=== PATIENT | male | born 1985 ===

== ENCOUNTER 2018-03-04 12:46 | Inpatient (IN) | payer SELFPAY ==
[2018-03-04] MEDS ORDERED: Sodium Chloride 0.9% 1,000 ML IV STA (13:08)
--- NOTE | 2018-03-04 13:23 | ED PDOC ---
HPI: Abdomen Time Seen by Provider: 03/04/18 12:55 Chief Complaint (Nursing): Abdominal Pain Chief Complaint (Provider): Abd pain History Per: Patient History/Exam Limitations: no limitations Onset/Duration Of Symptoms: Days (several days) Outside of [place] travel?: No Additional Complaint(s): Pt. with abd pain RUQ constant. No weakness, diarrhea, new food, back pain, fever, cough. Nausea, and 1 nonbloody vomit. No chest pain, dyspnea. No drugs or etoh. Past Medical History Reviewed: Nursing Documentation, Vital Signs Vital Signs: Last Vital Signs Temp 97.6 F 03/04/18 12:49 Pulse 69 03/04/18 12:49 Resp 18 03/04/18 12:49 BP Pulse Ox 99 03/04/18 13:48 - Medical History PMH: Kidney Stones - Surgical History Other surgeries: kidney stone surgery - Family History Family History: States: Unknown Family Hx - Home Medications Home Medications: Ambulatory Orders Medication Instructions Recorded No Known Home Med 03/04/18 - Allergies Allergies/Adverse Reactions: Allergies Allergy/AdvReac Type Severity Reaction Status Date / Time No Known Allergies Allergy Verified 03/04/18 12:49 Review of Systems ROS Statement: Except As Marked, All Systems Reviewed And Found Negative Gastrointestinal: Positive for: Nausea, Abdominal Pain Physical Exam - Reviewed Nursing Documentation Reviewed: Yes Vital Signs Reviewed: Yes - Physical Exam Appears: Positive for: Non-toxic, No Acute Distress Head Exam: Positive for: ATRAUMATIC, NORMAL INSPECTION, NORMOCEPHALIC Skin: Positive for: Normal Color, Warm, DRY Eye Exam: Positive for: EOMI, Normal appearance, PERRL ENT: Positive for: Normal ENT Inspection Neck: Positive for: Normal, Painless ROM Cardiovascular/Chest: Positive for: Regular Rate, Rhythm Respiratory: Positive for: CNT, Normal Breath Sounds Gastrointestinal/Abdominal: Positive for: Soft, Tenderness (RUQ), Guarding. Negative for: Distended Back: Positive for: Normal Inspection. Negative for: L CVA Tenderness, R CVA Tenderness Extremity: Positive for: Normal ROM. Negative for: Tenderness Neurologic/Psych: Positive for: Alert, Oriented - Laboratory Results Result Diagrams: 03/04/18 13:57 03/04/18 13:57 Interpretation Of Abn Labs: t bili and ast/alt elevation - ECG O2 Sat by Pulse Oximetry: 99 Pulse Ox Interpretation: Normal - Progress ED Course And Treament: 1432: Stable. GB stones, likely cholecystitis. Spoke with surgery who will see pt. in the ER and admit to their service. Disposition - Clinical Impression Clinical Impression: Cholecystitis - Patient ED Disposition Is Patient to be Admitted: Yes Counseled Patient/Family Regarding: Studies Performed, Diagnosis - Disposition Disposition Time: 14:33 Condition: FAIR - Pt Status Changed To: Hospital Disposition Of: Inpatient - Admit Certification Admit to Inpatient:: After my assessment, the patient will require hospitalization for at least two midnights. This is because of the severity of symptoms shown, intensity of services needed, and/or the medical risk in this patient being treated as an outpatient. - POA Present On Arrival: None
[2018-03-04 14:10] LABS: BASO % 0.3 % (0.0-2.0); EOS # 0.1 K/uL (0.0-0.7); EOS % 0.8 % (0.0-4.0); HEMOGLOBIN 14.1 g/dL (12.0-18.0); LYMPH # 1.7 K/uL (1.0-4.3); LYMPH % 19.3 % (20.0-40.0); MEAN CELL VOLUME 92.9 fl (80.0-94.0); MEAN CORPUSCULAR HEMOGLOBIN 31.5 pg (27.0-31.0); MEAN CORPUSCULAR HGB CONC 33.9 g/dL (33.0-37.0); MEAN PLATELET VOLUME 7.5 fl (7.2-11.7); MONO # 0.4 K/uL (0.0-0.8); MONO % 4.8 % (0.0-10.0); NEUT # 6.7 K/uL (1.8-7.0); NEUT % 74.8 % (50.0-75.0); RBC 4.48 Mil/uL (4.40-5.90); RED CELL DISTRIBUTION WIDTH 13.6 % (11.5-14.5); WHITE BLOOD COUNT 8.9 K/uL (4.8-10.8)
[2018-03-04 14:21] LABS: ALB/GLOB RATIO 1.3 (1.0-2.1); ALBUMIN 4.1 g/dL (3.5-5.0); ALT/SGPT 460 U/L (21-72); AST/SGOT 247 U/L (17-59); BLOOD UREA NITROGEN 17 mg/dl (9-20); GFR NON-AFRICAN AMERICAN > 60; LIPASE 76 U/L (23-300)
[2018-03-04] MEDS ORDERED: Piperacillin/Tazobact 3.375 GM in Sodium Chloride 0.9% 100 ML IV STA (14:31)
--- NOTE | 2018-03-04 14:31 | US ---
Date of service: 03/04/2018 HISTORY: abd pain RUQ COMPARISON: None. TECHNIQUE: Sonographic evaluation of the right upper quadrant of the abdomen. FINDINGS: LIVER: Measures 20.5 cm in length. Increased echogenicity of the liver parenchyma. No mass. No intrahepatic bile duct dilatation. GALLBLADDER: Cholelithiasis without gallbladder wall thickening or pericholecystic fluid. Sonographic Houser's sign was not elicited COMMON BILE DUCT: Measures 5 mm. No stones. No dilatation. PANCREAS: Unremarkable as visualized. No mass. No ductal dilatation. RIGHT KIDNEY: Measures 12.4 x 6.4 x 5.2 cm in length. Normal echogenicity. No calculus, mass, or hydronephrosis. AORTA: No aneurysmal dilatation. IVC: Unremarkable. OTHER FINDINGS: None . IMPRESSION: Hepatomegaly with steatosis. Cholelithiasis without sonographic evidence of acute cholecystitis.
[2018-03-04] MEDS ORDERED: Piperacillin/Tazobact 3.375 gm Inj IVPB ONE ×2 (14:45→23:59)
--- NOTE | 2018-03-04 16:37 | CP.PCM.HP ---
<Sharona Benz - Last Filed: 03/05/18 00:17> History of Present Illness - History of Present Illness History of Present Illness: General surgery H & P for Dr. Dede Benz, PGY-2 Pt S & E at beside at 1615 32M w/PMH sig for nephrolithiasis admitted for epigastric and RUQ ab pain x 4 days. Pt reports onset of pain on Saturday [employer] after eating tacos, pain subsided Saturday and Saturday, then recurred this AM after dinner of subway sandwich with coleman the evening prior. Pain is epigastric, radiates to RUQ and back. Pain is severe and intermittent. Pt tried Tylenol w/o relief. No other aggravating factors identified. Admits to dysuria, chills, dizziness, PINZON, flank pain, generalized weakness, cough, congestion, "feels cold", and fatigue. Denies constipation (last BM on day of evaluation), hematuria, hematochezia, chest pain, SOB, diarrhea, nausea, emesis, fevers, other complaints. In Ed, afebrile, no leukocytosis. T bili 1.4, LFTs elevated. Ab U/S w/ cholelithiasis. Lipase WNL. 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 absent: Fever - EENT Eyes: Change in Vision Ears: Dizziness Nose/Mouth/Throat: Nasal Congestion, Sore Throat - Cardiovascular Cardiovascular: absent: Chest Pain - Respiratory Respiratory: Cough - Gastrointestinal Gastrointestinal: Abdominal Pain. absent: Change in Bowel Habits, Constipation , Diarrhea, Hematemesis, Hematochezia, Nausea, Vomiting - Genitourinary Genitourinary: Dysuria, Flank Pain. absent: Change in Urinary Stream, Difficulty Urinating, Hematuria, Pyuria, Urinary Frequency, Urinary Urgency - Musculoskeletal Musculoskeletal: Back Pain. absent: Numbness, Tingling - Integumentary Integumentary: absent: Rash - Neurological Neurological: Dizziness, Weakness - Psychiatric Psychiatric: Change in Appetite (decreased) - Endocrine Endocrine: Fatigue Past Patient History - Past Social History Smoking Status: Current Some Days Smoker - RENAL Hx Kidney Stones: Yes - GENITOURINARY/GYNECOLOGICAL Hx Genitourinary Disorders: Yes Other/Comment: KIDNEY STONES - PSYCHIATRIC Hx Substance Use: Yes - SURGICAL HISTORY Hx Surgeries: Yes Other/Comment: KIDNEY STONES SURGERY - ANESTHESIA Hx Anesthesia: Yes Hx Anesthesia Reactions: No Meds Allergies/Adverse Reactions: Allergies Allergy/AdvReac Type Severity Reaction Status Date / Time No Known Allergies Allergy Verified 03/04/18 12:49 Physical Exam - Constitutional Appears: Non-toxic, No Acute Distress - Head Exam Head Exam: ATRAUMATIC, NORMAL INSPECTION, NORMOCEPHALIC - Eye Exam Eye Exam: EOMI, Normal appearance - ENT Exam ENT Exam: Mucous Membranes Moist, Normal Exam - Neck Exam Neck exam: Positive for: Full Rom, Normal Inspection - Respiratory Exam Respiratory Exam: Clear to Auscultation Bilateral, NORMAL BREATHING PATTERN. absent: Chest Wall Tenderness, Rales, Rhonchi, Wheezes, Respiratory Distress - Cardiovascular Exam Cardiovascular Exam: REGULAR RHYTHM, +S1, +S2 - GI/Abdominal Exam GI & Abdominal Exam: Guarding (RUQ), Normal Bowel Sounds, Soft, Tenderness (RUQ , epigastric). absent: Distended (obese), Firm, Hernia, Rebound, Rigid - Rectal Exam Rectal Exam: Deferred - Extremities Exam Extremities exam: Positive for: normal inspection. Negative for: pedal edema - Back Exam Back exam: NORMAL INSPECTION. absent: CVA tenderness (L), CVA tenderness (R), muscle spasm, paraspinal tenderness, tenderness, vertebral tenderness - Neurological Exam Neurological exam: Alert, CN II-XII Intact, Oriented x3 - Psychiatric Exam Psychiatric exam: Normal Affect, Normal Mood - Skin Skin Exam: Dry, Intact, Normal Color, Warm Results - Vital Signs Recent Vital Signs: Last Vital Signs Temp 97.9 F 03/04/18 16:08 Pulse 68 03/04/18 16:08 Resp 16 03/04/18 16:08 BP 132/84 03/04/18 16:08 Pulse Ox 99 03/04/18 16:08 - Labs Result Diagrams: 03/04/18 13:57 03/04/18 13:57 Labs: Laboratory Results - last 24 hr 03/04/18 03/04/18 13:57 13:57 WBC 8.9 RBC 4.48 Hgb 14.1 Hct 41.6 MCV 92.9 MCH 31.5 H MCHC 33.9 RDW 13.6 Plt Count 244 MPV 7.5 Neut % (Auto) 74.8 Lymph % (Auto) 19.3 L [place] % (Auto) 4.8 Eos % (Auto) 0.8 Baso % (Auto) 0.3 Neut # (Auto) 6.7 Lymph # (Auto) 1.7 [place] # (Auto) 0.4 Eos # (Auto) 0.1 Baso # (Auto) 0.0 Sodium 143 Potassium 3.8 Chloride 106 Carbon Dioxide 26 Anion Gap 15 BUN 17 Creatinine 0.8 Est GFR ( Amer) > 60 Est GFR (Non-Af Amer) > 60 Random Glucose 110 Calcium 9.0 Total Bilirubin 1.4 H AST 247 H ALT 460 H Alkaline Phosphatase 88 Total Protein 7.4 Albumin 4.1 Globulin 3.2 Albumin/Globulin Ratio 1.3 Lipase 76 Assessment & Plan - Assessment and Plan (Free Text) Assessment: 32M w/symptomatic cholelithiasis Plan: Admit to med surg VS Q8H Activity as tolerated NPO IVF Pain control IV Abx FU U/A GI/DVT ppx Plan for OR tomorrow Consent in chart DW Dr. Brayan Benz, PGY-2 - Date & Time Date: 03/04/18 Time: 16:44 Decision To Admit - Pt Status Changed To: Hospital Disposition Of: Inpatient - Admit Certification Admit to Inpatient:: After my assessment, the patient will require hospitalization for at least two midnights. This is because of the severity of symptoms shown, intensity of services needed, and/or the medical risk in this patient being treated as an outpatient. - . Bed Request Type: Med/Surg Admitting Physician: Delmar Schmidt <Delmar Schmidt - Last Filed: 03/05/18 10:07> Results - Vital Signs Recent Vital Signs: Last Vital Signs Temp 99.1 F 03/05/18 07:54 Pulse 78 03/05/18 07:54 Resp 19 03/05/18 07:54 BP 119/64 03/05/18 07:54 Pulse Ox 98 03/05/18 07:54 - Labs Result Diagrams: 03/05/18 05:45 03/05/18 05:45 Labs: Laboratory Results - last 24 hr 03/04/18 03/04/18 03/04/18 13:57 13:57 17:33 WBC 8.9 RBC 4.48 Hgb 14.1 Hct 41.6 MCV 92.9 MCH 31.5 H MCHC 33.9 RDW 13.6 Plt Count 244 MPV 7.5 Neut % (Auto) 74.8 Lymph % (Auto) 19.3 L [place] % (Auto) 4.8 Eos % (Auto) 0.8 Baso % (Auto) 0.3 Neut # (Auto) 6.7 Lymph # (Auto) 1.7 [place] # (Auto) 0.4 Eos # (Auto) 0.1 Baso # (Auto) 0.0 PT INR APTT Sodium 143 Potassium 3.8 Chloride 106 Carbon Dioxide 26 Anion Gap 15 BUN 17 Creatinine 0.8 Est GFR ( Amer) > 60 Est GFR (Non-Af Amer) > 60 Random Glucose 110 Calcium 9.0 Total Bilirubin 1.4 H AST 247 H ALT 460 H Alkaline Phosphatase 88 Total Protein 7.4 Albumin 4.1 Globulin 3.2 Albumin/Globulin Ratio 1.3 Lipase 76 Urine Color Yellow Urine Clarity Slighty-cloudy Urine pH 6.0 Ur Specific [place] 1.021 Urine Protein Negative Urine Glucose (UA) Neg Urine Ketones Negative Urine Blood Negative Urine Nitrate Negative Urine Bilirubin Negative Urine Urobilinogen 2.0 Ur Leukocyte Esterase Neg Urine RBC (Auto) 1 Urine Microscopic WBC 2 Ur Squamous Epith Cells < 1 03/05/18 03/05/18 03/05/18 05:45 05:45 05:45 WBC 13.3 H RBC 4.33 L Hgb 13.6 Hct 39.9 MCV 92.0 MCH 31.5 H MCHC 34.2 RDW 13.5 Plt Count 200 MPV Neut % (Auto) Lymph % (Auto) [place] % (Auto) Eos % (Auto) Baso % (Auto) Neut # (Auto) Lymph # (Auto) [place] # (Auto) Eos # (Auto) Baso # (Auto) PT 13.3 H INR 1.2 APTT Sodium 139 Potassium 3.5 L Chloride 105 Carbon Dioxide 25 Anion Gap 13 BUN 11 Creatinine 0.7 L Est GFR ( Amer) > 60 Est GFR (Non-Af Amer) > 60 Random Glucose 112 H Calcium 8.5 Total Bilirubin 4.7 H AST 160 H D ALT 365 H D Alkaline Phosphatase 71 Total Protein 6.6 Albumin 3.8 Globulin 2.8 Albumin/Globulin Ratio 1.4 Lipase Urine Color Urine Clarity Urine pH Ur Specific [place] Urine Protein Urine Glucose (UA) Urine Ketones Urine Blood Urine Nitrate Urine Bilirubin Urine Urobilinogen Ur Leukocyte Esterase Urine RBC (Auto) Urine Microscopic WBC Ur Squamous Epith Cells 03/05/18 03/05/18 05:45 07:54 WBC RBC Hgb Hct MCV MCH MCHC RDW Plt Count MPV Neut % (Auto) Lymph % (Auto) [place] % (Auto) Eos % (Auto) Baso % (Auto) Neut # (Auto) Lymph # (Auto) [place] # (Auto) Eos # (Auto) Baso # (Auto) PT INR APTT 38.2 H Sodium Potassium Chloride Carbon Dioxide Anion Gap BUN Creatinine Est GFR ( Amer) Est GFR (Non-Af Amer) Random Glucose Calcium Total Bilirubin AST ALT Alkaline Phosphatase Total Protein Albumin Globulin Albumin/Globulin Ratio Lipase 27 Urine Color Urine Clarity Urine pH Ur Specific [place] Urine Protein Urine Glucose (UA) Urine Ketones Urine Blood Urine Nitrate Urine Bilirubin Urine Urobilinogen Ur Leukocyte Esterase Urine RBC (Auto) Urine Microscopic WBC Ur Squamous Epith Cells Assessment & Plan - Assessment and Plan (Free Text) Plan: I personally saw and examined the patient with the resident staff and agree with the above assessment and plan. I personally reviewed the available diagnostic images and imaging reports. Acute cholecystitis. Admit NPO. 24 hours IV abx. Lap renetta tomorrow.
[2018-03-04] MEDS ORDERED: Morphine 4 MG/ML VIAL IVP PRN (16:49)
[2018-03-04] MEDS ORDERED: Dextrose 5%/0.45% NS 1,000 ML IV SCH (17:00)
[2018-03-04] MEDS ORDERED: Sterile Water 0 ML IV ONE (17:13)
[2018-03-04] MEDS: Lactated Ringer's 1,000 ML IV SCH (17:19)
[2018-03-04 17:53] LABS: SQUAMOUS EPITHIAL < 1 /hpf (0-5); URINE BILIRUBIN NEGATIVE (NEGATIVE); URINE BLOOD NEGATIVE (NEGATIVE); URINE CLARITY SLIGHTY-CLOUDY (Clear); URINE COLOR YELLOW (YELLOW); URINE GLUCOSE (UA) NEG (Normal); URINE LEUKOCYTE ESTERASE NEG Leu/uL (Negative); URINE PROTEIN NEGATIVE (NEGATIVE)
[2018-03-04] MEDS ORDERED: Morphine 4 MG/ML VIAL ONE (19:45)
[2018-03-05] MEDS: Piperacillin/Tazobact 3.375 GM in Sodium Chloride 0.9% 100 ML IVPB SCH ×5 (00:26→21:19)
[2018-03-05] MEDS: Lactated Ringer's 1,000 ML IV SCH ×3 (02:35→16:49)
[2018-03-05] MEDS ORDERED: Piperacillin/Tazobact 3.375 gm Inj IVPB ONE ×2 (05:20→13:10)
[2018-03-05 06:41] LABS: HEMOGLOBIN 13.6 g/dL (12.0-18.0); MEAN CORPUSCULAR HEMOGLOBIN 31.5 pg (27.0-31.0); MEAN CORPUSCULAR HGB CONC 34.2 g/dL (33.0-37.0); RBC 4.33 Mil/uL (4.40-5.90); RED CELL DISTRIBUTION WIDTH 13.5 % (11.5-14.5); WHITE BLOOD COUNT 13.3 K/uL (4.8-10.8)
[2018-03-05 06:44] LABS: INR 1.2; PROTHROMBIN TIME 13.3 Seconds (9.8-13.1)
[2018-03-05 07:06] LABS: ALB/GLOB RATIO 1.4 (1.0-2.1); ALBUMIN 3.8 g/dL (3.5-5.0); ALT/SGPT 365 U/L (21-72); AST/SGOT 160 U/L (17-59); BLOOD UREA NITROGEN 11 mg/dl (9-20); CALCIUM 8.5 mg/dL (8.4-10.2); GFR NON-AFRICAN AMERICAN > 60
--- NOTE | 2018-03-05 09:31 | CARD ---
APPROVED REPORT Date of service: 03/05/2018 EKG Measurement Heart [id number] <Conclusion> Normal sinus rhythm Normal ECG
[2018-03-05] MEDS ORDERED: Potassium Chloride 20 mEq ER Tab PO ONE ×2 (09:39→13:11)
--- NOTE | 2018-03-05 10:11 | RAD ---
Date of service: 03/04/2018 PROCEDURE: CHEST RADIOGRAPH, 1 VIEW HISTORY: pre op COMPARISON: None available. FINDINGS: LUNGS: 5 mm nodular opacity left lung base - etiology/origin uncertain asymmetrically prominent nipple marker 1 consideration. Left pulmonary nodule another. Conceivably a prominent vessel on end not excluded. Low-density linear to bandlike opacity right mid to lower lung zone atelectatic changes and/or scarring here compatible with this. Chronicity unknown Possible tiny 2 to 3 mm granuloma right upper lobe. PLEURA: No pneumothorax or pleural fluid seen. CARDIOVASCULAR: Normal heart size. No billy pulmonary venous congestion. OSSEOUS STRUCTURES: No significant abnormalities. VISUALIZED UPPER ABDOMEN: Normal. OTHER FINDINGS: None. IMPRESSION: Right mid- linear to bandlike atelectasis and or scarring. Indeterminate 4 to 5 mm nodular opacity - project over left lung base. Origin and clinical significance (and if any) is unknown. Without prior chest x-rays consider an elective noncontrast CT chest to further evaluate Comments: Study marked for PA review .
--- NOTE | 2018-03-05 12:11 | CP.PCM.PN ---
Subjective - Date & Time of Evaluation Date of Evaluation: 03/05/18 Time of Evaluation: 12:09 - Subjective Subjective: General Surgery Dr. Schmidt Pt S&E @bedside. NAEO. pt has no complaints. reports improved abd pain. denies F /C, N/V. NPO for procedure today. Objective - Vital Signs/Intake and Output Vital Signs (last 24 hours): Temp Pulse Resp BP Pulse Ox 99.1 F 78 19 119/64 98 03/05/18 07:54 03/05/18 07:54 03/05/18 07:54 03/05/18 07:54 03/05/18 07:54 - Medications Medications: Current Medications Piperacillin Sod/Tazobactam (Sod 3.375 gm/ Sodium Chloride) 100 mls @ 100 mls/ hr IVPB Q6 MAGDALENE PRN Reason: Protocol Last Admin: 03/05/18 05:39 Dose: 100 mls/hr Lactated Ringer's (Lactated Ringer's) 1,000 mls @ 125 mls/hr IV .Q8H MAGDALENE Morphine Sulfate (Morphine) 4 mg IVP Q6 PRN PRN Reason: Pain, moderate (4-7) Last Admin: 03/04/18 19:45 Dose: 4 mg Ondansetron HCl (Zofran Inj) 4 mg IVP Q6 PRN PRN Reason: Nausea/Vomiting Last Admin: 03/04/18 19:45 Dose: 4 mg Pantoprazole Sodium (Protonix Inj) 40 mg IVP DAILY MAGDALENE Last Admin: 03/04/18 17:22 Dose: 40 mg - Labs Labs: 03/05/18 05:45 03/05/18 05:45 PT 13.3 Seconds (9.8-13.1) H 03/05/18 05:45 INR 1.2 03/05/18 05:45 APTT 38.2 Seconds (25.6-37.1) H 03/05/18 05:45 - Constitutional Appears: Non-toxic, No Acute Distress - Head Exam Head Exam: NORMAL INSPECTION - Eye Exam Eye Exam: Normal appearance - ENT Exam ENT Exam: Mucous Membranes Moist - Respiratory Exam Respiratory Exam: NORMAL BREATHING PATTERN. absent: Accessory Muscle Use, Respiratory Distress - Cardiovascular Exam Cardiovascular Exam: REGULAR RHYTHM. absent: Bradycardia, Tachycardia - GI/Abdominal Exam GI & Abdominal Exam: Distended (obese), Firm (B/L upper quadrants), Guarding (B/ L upper quandrants), Soft, Tenderness (RUQ). absent: Rigid, Rebound - Extremities Exam Extremities Exam: Normal Inspection - Neurological Exam Neurological Exam: Alert, Awake, Oriented x3 - Psychiatric Exam Psychiatric exam: Normal Affect, Normal Mood - Skin Skin Exam: Dry, Intact, Normal Color, Warm Assessment and Plan - Assessment and Plan (Free Text) Assessment: 32 y/o M w/ acute cholecystisits and choledocholithiasis seen on MRCP this AM - NPO/IVF - cont Zosyn Q6 - cont pain management - GI consult, Dr. Rubin --> tentative ERCP later today - OR tomorrow pending successful ERCP today - encourage OOB to chair/Amb/IS use Pt discussed w/ Dr. Brayan Thomas DO PGY3
--- NOTE | 2018-03-05 13:28 | CP.PCM.CON ---
History of Present Illness - History of Present Illness History of Present Illness: GI consult note for Dr. Rubin Consulted for: possible choledocholithiasis Pt is a 32M with PMH of nephrolithiasis and asthma who presented to the ED with 4 days of intermittent epigastric pain. Patient states that pain began on Saturday after eating, resolved, and then came back last night after eating a sandwich whit coleman on it. Pain is sharp, constant, and in the epigastric area, not radiating. Patient reports nausea with the pain, but no vomiting, no constipation or diarrhea, with his last BM yesterday of normal color, caliber, and consistency, no hematochezia or melena. Patient states that presently he is not having any pain or nausea. Patient denies any fevers as an outpatient but had a temperature of 100.3 in the ER that has since resolved. Patient denies any prior occurrence or other GI issues. PMH: Nephrolithiasis, asthma PSH: urethral stent placement and removal 09/2017 ALL: nkda social: admits 1-3 cigarettes/day, denies any ETOH, and admits to smoking marijuana daily Family: Father of lung cancer, Mother of "head tumor" Review of Systems - Review of Systems All systems: reviewed and no additional remarkable complaints except (as per HPI ) Past Patient History - Past Medical History & Family History Past Medical History?: Yes Past Family History: Reviewed and not pertinent - Past Social History Smoking Status: Light Smoker < 10 Cigarettes Daily Alcohol: None Drugs: Cannabis (daily) Home Situation {Lives}: Homeless - RENAL Hx Kidney Stones: Yes - GENITOURINARY/GYNECOLOGICAL Hx Genitourinary Disorders: Yes - PSYCHIATRIC Hx Substance Use: Yes - SURGICAL HISTORY Hx Surgeries: Yes Other/Comment: KIDNEY STONES SURGERY - ANESTHESIA Hx Anesthesia: Yes Hx Anesthesia Reactions: No Meds Allergies/Adverse Reactions: Allergies Allergy/AdvReac Type Severity Reaction Status Date / Time No Known Allergies Allergy Verified 03/04/18 12:49 - Medications Medications: Current Medications Piperacillin Sod/Tazobactam (Sod 3.375 gm/ Sodium Chloride) 100 mls @ 100 mls/ hr IVPB Q6 MAGDALENE PRN Reason: Protocol Last Admin: 03/05/18 13:15 Dose: 100 mls/hr Lactated Ringer's (Lactated Ringer's) 1,000 mls @ 125 mls/hr IV .Q8H MAGDALENE Last Admin: 03/05/18 13:17 Dose: 125 mls/hr Morphine Sulfate (Morphine) 4 mg IVP Q6 PRN PRN Reason: Pain, moderate (4-7) Last Admin: 03/04/18 19:45 Dose: 4 mg Ondansetron HCl (Zofran Inj) 4 mg IVP Q6 PRN PRN Reason: Nausea/Vomiting Last Admin: 03/04/18 19:45 Dose: 4 mg Pantoprazole Sodium (Protonix Inj) 40 mg IVP DAILY [facility] Last Admin: 03/05/18 13:11 Dose: 40 mg Physical Exam - Constitutional Appears: Well, Non-toxic, No Acute Distress - Head Exam Head Exam: ATRAUMATIC, NORMOCEPHALIC - Eye Exam Eye Exam: Normal appearance. absent: Conjunctival injection, Scleral icterus - ENT Exam ENT Exam: Mucous Membranes Moist, Normal Oropharynx - Respiratory Exam Respiratory Exam: NORMAL BREATHING PATTERN. absent: Accessory Muscle Use, Respiratory Distress - Cardiovascular Exam Cardiovascular Exam: RRR - GI/Abdominal Exam GI & Abdominal Exam: Soft, Tenderness (mild RUQ and epigastric tenderness). absent: Distended Additional comments: fullness in the RUQ, negative stacy's sign - Extremities Exam Extremities exam: Positive for: pedal pulses present. Negative for: calf tenderness, pedal edema - Neurological Exam Neurological exam: Alert, Oriented x3 - Psychiatric Exam Psychiatric exam: Normal Affect, Normal Mood - Skin Skin Exam: Dry, Intact, Normal Color, Warm Results - Vital Signs Recent Vital Signs: Last Vital Signs Temp 98.4 F 03/05/18 13:18 Pulse 71 03/05/18 13:18 Resp 19 03/05/18 13:18 BP 123/79 03/05/18 13:18 Pulse Ox 98 03/05/18 12:44 - Labs Result Diagrams: 03/05/18 05:45 03/05/18 05:45 Labs: Laboratory Results - last 24 hr 03/04/18 03/04/18 03/04/18 13:57 13:57 17:33 WBC 8.9 RBC 4.48 Hgb 14.1 Hct 41.6 MCV 92.9 MCH 31.5 H MCHC 33.9 RDW 13.6 Plt Count 244 MPV 7.5 Neut % (Auto) 74.8 Lymph % (Auto) 19.3 L [place] % (Auto) 4.8 Eos % (Auto) 0.8 Baso % (Auto) 0.3 Neut # (Auto) 6.7 Lymph # (Auto) 1.7 [place] # (Auto) 0.4 Eos # (Auto) 0.1 Baso # (Auto) 0.0 PT INR APTT Sodium 143 Potassium 3.8 Chloride 106 Carbon Dioxide 26 Anion Gap 15 BUN 17 Creatinine 0.8 Est GFR ( Amer) > 60 Est GFR (Non-Af Amer) > 60 Random Glucose 110 Calcium 9.0 Total Bilirubin 1.4 H AST 247 H ALT 460 H Alkaline Phosphatase 88 Total Protein 7.4 Albumin 4.1 Globulin 3.2 Albumin/Globulin Ratio 1.3 Lipase 76 Urine Color Yellow Urine Clarity Slighty-cloudy Urine pH 6.0 Ur Specific [place] 1.021 Urine Protein Negative Urine Glucose (UA) Neg Urine Ketones Negative Urine Blood Negative Urine Nitrate Negative Urine Bilirubin Negative Urine Urobilinogen 2.0 Ur Leukocyte Esterase Neg Urine RBC (Auto) 1 Urine Microscopic WBC 2 Ur Squamous Epith Cells < 1 03/05/18 03/05/18 03/05/18 05:45 05:45 05:45 WBC 13.3 H RBC 4.33 L Hgb 13.6 Hct 39.9 MCV 92.0 MCH 31.5 H MCHC 34.2 RDW 13.5 Plt Count 200 MPV Neut % (Auto) Lymph % (Auto) [place] % (Auto) Eos % (Auto) Baso % (Auto) Neut # (Auto) Lymph # (Auto) [place] # (Auto) Eos # (Auto) Baso # (Auto) PT 13.3 H INR 1.2 APTT Sodium 139 Potassium 3.5 L Chloride 105 Carbon Dioxide 25 Anion Gap 13 BUN 11 Creatinine 0.7 L Est GFR ( Amer) > 60 Est GFR (Non-Af Amer) > 60 Random Glucose 112 H Calcium 8.5 Total Bilirubin 4.7 H AST 160 H D ALT 365 H D Alkaline Phosphatase 71 Total Protein 6.6 Albumin 3.8 Globulin 2.8 Albumin/Globulin Ratio 1.4 Lipase Urine Color Urine Clarity Urine pH Ur Specific [place] Urine Protein Urine Glucose (UA) Urine Ketones Urine Blood Urine Nitrate Urine Bilirubin Urine Urobilinogen Ur Leukocyte Esterase Urine RBC (Auto) Urine Microscopic WBC Ur Squamous Epith Cells 03/05/18 03/05/18 05:45 07:54 WBC RBC Hgb Hct MCV MCH MCHC RDW Plt Count MPV Neut % (Auto) Lymph % (Auto) [place] % (Auto) Eos % (Auto) Baso % (Auto) Neut # (Auto) Lymph # (Auto) [place] # (Auto) Eos # (Auto) Baso # (Auto) PT INR APTT 38.2 H Sodium Potassium Chloride Carbon Dioxide Anion Gap BUN Creatinine Est GFR ( Amer) Est GFR (Non-Af Amer) Random Glucose Calcium Total Bilirubin AST ALT Alkaline Phosphatase Total Protein Albumin Globulin Albumin/Globulin Ratio Lipase 27 Urine Color Urine Clarity Urine pH Ur Specific [place] Urine Protein Urine Glucose (UA) Urine Ketones Urine Blood Urine Nitrate Urine Bilirubin Urine Urobilinogen Ur Leukocyte Esterase Urine RBC (Auto) Urine Microscopic WBC Ur Squamous Epith Cells Assessment & Plan - Assessment and Plan (Free Text) Assessment: 32M with choledocholithiasis and acute cholecystitis vs symptomatic cholelithiasis Plan: Continue to trend CBC and CMP MRCP with evidence of choledocholithiasis and cholelithiasis--plan for ERCP in the AM CLD as tolerated, NPO after midnight PRN pain and nausea medication IVF Discussed and examined with dr. Scottie Murphy, PGY2
--- NOTE | 2018-03-05 13:38 | MRI ---
Date of service: 03/05/2018 PROCEDURE: Magnetic Resonance Cholangiopancreatography HISTORY: COMPARISON: None available. TECHNIQUE: Multiplanar, multisequence MR images of the abdomen were obtained, including heavily T2 weighted MRCP images of the biliary system. Rotating maximum intensity projection images of the biliary system were generated. The examination is limited. The patient did not complete the examination and some pulse sequences that are considered part of this examination were not obtained. No thick slab MRCP examination is available. FINDINGS: MRCP: Not obtained. See above. LIVER: Mild hepatomegaly. The liver measures 21.3 cm craniocaudal. Smooth contour. No mass. Normal signal intensity. No biliary ductal dilatation. GALLBLADDER: Cholelithiasis. No mural thickening. No pericholecystic fluid. Multiple filling defects are seen within the common bile duct consistent with choledocholithiasis. The common bile duct is normal in caliber. SPLEEN: Mild splenomegaly. The spleen measures 13.9 cm greatest dimension. No mass. PANCREAS: Unremarkable. ADRENALS: Unremarkable. KIDNEYS: Unremarkable. AORTA: No aneurysm. ASCITES: None. OTHER FINDINGS: None. IMPRESSION: Limited examination as above. Patient did not complete examination. Mild hepatosplenomegaly. Cholelithiasis and choledocholithiasis. No evidence of biliary obstruction.
[2018-03-05] MEDS ORDERED: Pneumococcal 23-Valent Vaccine IM ONE (21:00)
[2018-03-06] MEDS: Lactated Ringer's 1,000 ML IV SCH ×3 (01:33→16:06)
[2018-03-06] MEDS: Piperacillin/Tazobact 3.375 GM in Sodium Chloride 0.9% 100 ML IVPB SCH ×4 (04:38→22:21)
[2018-03-06 06:33] LABS: HEMOGLOBIN 13.5 g/dL (12.0-18.0); MEAN CELL VOLUME 92.7 fl (80.0-94.0); MEAN CORPUSCULAR HEMOGLOBIN 31.8 pg (27.0-31.0); MEAN CORPUSCULAR HGB CONC 34.3 g/dL (33.0-37.0); RBC 4.24 Mil/uL (4.40-5.90); RED CELL DISTRIBUTION WIDTH 13.9 % (11.5-14.5); WHITE BLOOD COUNT 7.8 K/uL (4.8-10.8)
[2018-03-06 06:44] LABS: ALB/GLOB RATIO 1.3 (1.0-2.1); ALBUMIN 3.7 g/dL (3.5-5.0); ALT/SGPT 316 U/L (21-72); AST/SGOT 163 U/L (17-59); BLOOD UREA NITROGEN 11 mg/dl (9-20); CALCIUM 8.8 mg/dL (8.4-10.2); GFR NON-AFRICAN AMERICAN > 60
[2018-03-06] MEDS ORDERED: Glucagon Recombinant 1 mg Inj ONE (07:51)
[2018-03-06] MEDS ORDERED: Iohexol 240 (50 ml) ONE (07:51)
[2018-03-06] MEDS ORDERED: Lactated Ringer's 500 ML IV ONE ×2 (08:11→09:29)
[2018-03-06] MEDS ORDERED: Propofol 10 mg/ml Inj (20 ML) ONE (08:25)
[2018-03-06] MEDS ORDERED: Midazolam 2 MG/2 ML VIAL ONE (08:25)
--- NOTE | 2018-03-06 09:53 | CP.PCM.PN ---
Subjective - Date & Time of Evaluation Date of Evaluation: 03/06/18 Time of Evaluation: 09:52 - Subjective Subjective: General surgery progress note for Dr. Dede Benz, PGY-2 Pt S & E a tbedside at 0710 Pt reports ab pain is improved. Reports subjective fevers. Denies N & V, chills. Objective - Vital Signs/Intake and Output Vital Signs (last 24 hours): Temp Pulse Resp BP Pulse Ox 97 F L 77 16 127/62 100 03/06/18 09:37 03/06/18 09:37 03/06/18 09:37 03/06/18 09:37 03/06/18 09:37 Intake and Output: 03/06/18 03/06/18 06:59 18:59 Intake Total 50 Balance 50 - Medications Medications: Current Medications Piperacillin Sod/Tazobactam (Sod 3.375 gm/ Sodium Chloride) 100 mls @ 100 mls/ hr IVPB Q6 MAGDALENE PRN Reason: Protocol Last Admin: 03/06/18 04:38 Dose: 100 mls/hr Lactated Ringer's (Lactated Ringer's) 1,000 mls @ 125 mls/hr IV .Q8H [facility] Last Admin: 03/06/18 08:04 Dose: 125 mls/hr Morphine Sulfate (Morphine) 4 mg IVP Q6 PRN PRN Reason: Pain, moderate (4-7) Last Admin: 03/06/18 08:02 Dose: 4 mg Ondansetron HCl (Zofran Inj) 4 mg IVP Q6 PRN PRN Reason: Nausea/Vomiting Last Admin: 03/04/18 19:45 Dose: 4 mg Pantoprazole Sodium (Protonix Inj) 40 mg IVP DAILY [facility] Last Admin: 03/05/18 13:11 Dose: 40 mg - Labs Labs: 03/06/18 05:40 03/06/18 05:40 PT 13.3 Seconds (9.8-13.1) H 03/05/18 05:45 INR 1.2 03/05/18 05:45 APTT 38.2 Seconds (25.6-37.1) H 03/05/18 05:45 - Constitutional Appears: Non-toxic, No Acute Distress - Head Exam Head Exam: ATRAUMATIC, NORMAL INSPECTION, NORMOCEPHALIC - Eye Exam Eye Exam: EOMI, Normal appearance - ENT Exam ENT Exam: Mucous Membranes Moist, Normal Exam - Neck Exam Neck Exam: Full ROM, Normal Inspection - Respiratory Exam Respiratory Exam: NORMAL BREATHING PATTERN - Cardiovascular Exam Cardiovascular Exam: REGULAR RHYTHM, +S1, +S2 - GI/Abdominal Exam GI & Abdominal Exam: Soft. absent: Distended, Firm, Guarding, Rigid, Tenderness - Neurological Exam Neurological Exam: Alert, Awake, CN II-XII Intact, Oriented x3 - Psychiatric Exam Psychiatric exam: Normal Affect, Normal Mood - Skin Skin Exam: Dry, Intact, Normal Color, Warm Assessment and Plan - Assessment and Plan (Free Text) Assessment: 32M w/acute cholecystitis, choledocolithiasis on MRCP Plan: For ERCP tomorrow Cont Abx Cont NPO Cont IVF Pain control PRN OOBTC Encourage IS use Ambulate as tolerated Monitor labs Plan for OR after ERCP JAMAAL attending Tuyet, PGY-2
[2018-03-06 12:56] VITALS: BMI 28.7
[2018-03-07] MEDS: Piperacillin/Tazobact 3.375 GM in Sodium Chloride 0.9% 100 ML IVPB SCH ×4 (04:06→21:45)
[2018-03-07] MEDS: Lactated Ringer's 1,000 ML IV SCH ×4 (04:07→21:44)
[2018-03-07 06:32] LABS: MEAN CELL VOLUME 92.3 fl (80.0-94.0); MEAN CORPUSCULAR HEMOGLOBIN 31.9 pg (27.0-31.0); MEAN CORPUSCULAR HGB CONC 34.6 g/dL (33.0-37.0); RBC 4.38 Mil/uL (4.40-5.90); RED CELL DISTRIBUTION WIDTH 13.6 % (11.5-14.5); WHITE BLOOD COUNT 7.6 K/uL (4.8-10.8)
[2018-03-07 06:45] LABS: ALB/GLOB RATIO 1.3 (1.0-2.1); ALBUMIN 3.7 g/dL (3.5-5.0); ALT/SGPT 264 U/L (21-72); AST/SGOT 105 U/L (17-59); BLOOD UREA NITROGEN 13 mg/dl (9-20); GFR NON-AFRICAN AMERICAN > 60
[2018-03-07] MEDS ORDERED: Glucagon Recombinant 1 mg Inj ONE (07:30)
[2018-03-07] MEDS ORDERED: Indomethacin 50 MG Suppository PR ONE ×3 (07:31→09:39)
[2018-03-07] MEDS ORDERED: Lidocaine 4% (Laryng-O-Jet) Kit MM ONE ×2 (07:31→11:29)
[2018-03-07] MEDS ORDERED: Iohexol 240 (50 ml) ONE (07:31)
[2018-03-07] MEDS ORDERED: Midazolam 2 MG/2 ML VIAL ONE (08:03)
[2018-03-07] MEDS ORDERED: Propofol 10 mg/ml Inj (20 ML) ONE ×2 (08:03→11:29)
[2018-03-07] MEDS ORDERED: Lactated Ringer's 500 ML IV ONE ×3 (08:20→15:00)
--- NOTE | 2018-03-07 08:54 | CP.PCM.PN ---
<Nikos Renae - Last Filed: 03/07/18 08:52> Subjective - Date & Time of Evaluation Date of Evaluation: 03/07/18 Time of Evaluation: 06:45 - Subjective Subjective: General Surgery Pt seen and examined. No new complaints. Still with abdominal pain that comes and goes in the RUQ same as yesterday. Denies F/C, N/V. Objective - Vital Signs/Intake and Output Vital Signs (last 24 hours): Temp Pulse Resp BP Pulse Ox 97.5 F L 68 19 137/77 97 03/07/18 07:45 03/07/18 07:45 03/07/18 07:45 03/07/18 07:45 03/07/18 07:45 - Medications Medications: Current Medications Piperacillin Sod/Tazobactam (Sod 3.375 gm/ Sodium Chloride) 100 mls @ 100 mls/ hr IVPB Q6 MAGDALENE PRN Reason: Protocol Last Admin: 03/07/18 04:06 Dose: 100 mls/hr Lactated Ringer's (Lactated Ringer's) 1,000 mls @ 125 mls/hr IV .Q8H [facility] Last Admin: 03/07/18 04:07 Dose: 125 mls/hr Morphine Sulfate (Morphine) 4 mg IVP Q6 PRN PRN Reason: Pain, moderate (4-7) Last Admin: 03/06/18 16:46 Dose: 4 mg Ondansetron HCl (Zofran Inj) 4 mg IVP Q6 PRN PRN Reason: Nausea/Vomiting Last Admin: 03/04/18 19:45 Dose: 4 mg Pantoprazole Sodium (Protonix Inj) 40 mg IVP DAILY [facility] Last Admin: 03/06/18 10:28 Dose: 40 mg - Labs Labs: 03/07/18 05:20 03/07/18 05:20 PT 13.3 Seconds (9.8-13.1) H 03/05/18 05:45 INR 1.2 03/05/18 05:45 APTT 38.2 Seconds (25.6-37.1) H 03/05/18 05:45 - Constitutional Appears: Non-toxic, No Acute Distress - Head Exam Head Exam: ATRAUMATIC, NORMOCEPHALIC - Eye Exam Eye Exam: EOMI. absent: Scleral icterus - Respiratory Exam Respiratory Exam: NORMAL BREATHING PATTERN. absent: Respiratory Distress - Cardiovascular Exam Cardiovascular Exam: RRR, +S1, +S2 - GI/Abdominal Exam GI & Abdominal Exam: Soft, Tenderness (mild in RUQ.). absent: Distended, Firm, Guarding, Rigid, Rebound - Neurological Exam Neurological Exam: Alert, Awake, Oriented x3 - Skin Skin Exam: Dry, Warm Assessment and Plan - Assessment and Plan (Free Text) Assessment: 32M w/acute cholecystitis, choledocolithiasis on MRCP Plan: ERCP planned this AM Cont Abx Cont NPO Cont IVF Pain control PRN Encourage IS use/ambulation Monitor labs Plan for OR after ERCP D/W Dr. Brayan Renae PGY4 <Delmar Schmidt - Last Filed: 03/08/18 10:30> Objective - Vital Signs/Intake and Output Vital Signs (last 24 hours): Temp Pulse Resp BP Pulse Ox 98.0 F 63 18 132/77 97 03/08/18 07:56 03/08/18 07:56 03/08/18 07:56 03/08/18 07:56 03/08/18 07:56 - Medications Medications: Current Medications Acetaminophen (Tylenol 325mg Tab) 650 mg PO Q4 PRN PRN Reason: Pain, Mild (1-3) Docusate Sodium (Colace) 100 mg PO DAILY [facility] Last Admin: 03/08/18 09:47 Dose: 100 mg Piperacillin Sod/Tazobactam (Sod 3.375 gm/ Sodium Chloride) 100 mls @ 100 mls/ hr IVPB Q6 MAGDALENE PRN Reason: Protocol Last Admin: 03/08/18 09:39 Dose: 100 mls/hr Lactated Ringer's (Lactated Ringer's) 1,000 mls @ 100 mls/hr IV .Q10H [facility] Last Admin: 03/07/18 21:44 Dose: 100 mls/hr Ibuprofen (Motrin Tab) 600 mg PO Q6 [facility] Last Admin: 03/08/18 09:51 Dose: 600 mg Ondansetron HCl (Zofran Inj) 4 mg IVP Q6 PRN PRN Reason: Nausea/Vomiting Last Admin: 03/04/18 19:45 Dose: 4 mg Pantoprazole Sodium (Protonix Inj) 40 mg IVP DAILY [facility] Last Admin: 03/08/18 09:43 Dose: 40 mg Tramadol HCl (Ultram) 50 mg PO Q6 PRN PRN Reason: Pain, moderate (4-7) Last Admin: 03/07/18 22:40 Dose: 50 mg - Labs Labs: 03/08/18 05:00 03/08/18 05:00 PT 13.3 Seconds (9.8-13.1) H 03/05/18 05:45 INR 1.2 03/05/18 05:45 APTT 38.2 Seconds (25.6-37.1) H 03/05/18 05:45 Assessment and Plan - Assessment and Plan (Free Text) Plan: Agree with above. ERCP completely earlier with sphincterotomy and stone extraction. To OR for lap cholecystectomy. Risks and benefits of surgery previously discussed and consented.
[2018-03-07] MEDS ORDERED: Succinylcholine 200 mg/10 ml Inj IV ONE (11:29)
[2018-03-07] MEDS ORDERED: Rocuronium 10 mg/ml (5 ml) ONE ×2 (11:29→13:16)
[2018-03-07] MEDS ORDERED: Dexamethasone 4 mg/1 ml ONE (11:33)
[2018-03-07] MEDS ORDERED: Neostigmine 1:1000 (1 mg/ml) Inj ONE (11:33)
[2018-03-07] MEDS ORDERED: Bupivacaine HCl 0.5% PF (30 ml) Inj ONE (11:47)
[2018-03-07] MEDS ORDERED: Lactated Ringer's 1,000 ML IV ONE ×3 (12:21→14:00)
[2018-03-07] MEDS ORDERED: Phenylephrine 10 mg/ml Inj ONE (14:06)
[2018-03-07] MEDS ORDERED: Desflurane Inhalation Anesthetic Liq (240 ml) ONE (14:15)
[2018-03-07] MEDS ORDERED: HYDROmorphone 0.5 mg/0.5 ml ISec IVP PRN (15:20)
--- NOTE | 2018-03-07 15:21 | PCM.SURG1 ---
Surgeon's Initial Post Op Note - Surgeon's Notes Surgeon: Dr. Schmidt Pipe Tester: Dr. Renae PGY4, Dr. Thomas PGY3 Type of Anesthesia: General Endo Pre-Operative Diagnosis: choledocholithiasis; acute cholecystitis Operative Findings: see dictation Post-Operative Diagnosis: same Operation Performed: laparscopic cholecystectomy Specimen/Specimens Removed: gallbladder Estimated Blood Loss: EBL {In ML}: 25 Blood Products Given: N/A Drains Used: No Drains Post-Op Condition: Good Date of Surgery/Procedure: 03/07/18 (n) Time of Surgery/Procedure: 12:30
[2018-03-07] MEDS ORDERED: oxyCODONE 5 mg Immediate Release Tab PO PRN (15:22)
[2018-03-07] MEDS ORDERED: oxyCODONE 10 mg Immediate Release Tab PO PRN (15:22)
[2018-03-08] MEDS: Piperacillin/Tazobact 3.375 GM in Sodium Chloride 0.9% 100 ML IVPB SCH ×2 (04:37→09:39)
[2018-03-08 06:38] LABS: HEMOGLOBIN 13.5 g/dL (12.0-18.0); MEAN CELL VOLUME 92.5 fl (80.0-94.0); MEAN CORPUSCULAR HEMOGLOBIN 31.8 pg (27.0-31.0); MEAN CORPUSCULAR HGB CONC 34.3 g/dL (33.0-37.0); RBC 4.25 Mil/uL (4.40-5.90); RED CELL DISTRIBUTION WIDTH 13.5 % (11.5-14.5); WHITE BLOOD COUNT 10.3 K/uL (4.8-10.8)
[2018-03-08 06:54] LABS: ALB/GLOB RATIO 1.2 (1.0-2.1); ALBUMIN 3.4 g/dL (3.5-5.0); ALT/SGPT 215 U/L (21-72); AST/SGOT 88 U/L (17-59); BLOOD UREA NITROGEN 13 mg/dl (9-20); CALCIUM 8.7 mg/dL (8.4-10.2); GFR NON-AFRICAN AMERICAN > 60
[2018-03-08 07:57] VITALS: BP 132/77; PULSE 63; RESP 18; TEMP 98; O2SAT 97
--- NOTE | 2018-03-08 10:09 | CP.PCM.DIS ---
<Juan Jose Reardon - Last Filed: 03/08/18 10:05> Provider - Provider Date of Admission: 03/04/18 15:30 Attending physician: Delmar Schmidt MD Time Spent in preparation of Discharge (in minutes): 30 Diagnosis - Discharge Diagnosis (1) Cholecystitis Status: Acute Hospital Course - Lab Results Lab Results: Micro Results 03/04/18 15:02 Blood Blood Culture - Preliminary NO GROWTH AFTER 3 DAYS 03/04/18 15:02 Blood Blood Culture - Preliminary NO GROWTH AFTER 3 DAYS Most Recent Lab Values WBC 10.3 K/uL (4.8-10.8) 03/08/18 05:00 RBC 4.25 Mil/uL (4.40-5.90) L 03/08/18 05:00 Hgb 13.5 g/dL (12.0-18.0) 03/08/18 05:00 Hct 39.3 % (35.0-51.0) 03/08/18 05:00 MCV 92.5 fl (80.0-94.0) 03/08/18 05:00 MCH 31.8 pg (27.0-31.0) H 03/08/18 05:00 MCHC 34.3 g/dL (33.0-37.0) 03/08/18 05:00 RDW 13.5 % (11.5-14.5) 03/08/18 05:00 Plt Count 271 K/uL (130-400) 03/08/18 05:00 MPV 7.5 fl (7.2-11.7) 03/04/18 13:57 Neut % (Auto) 74.8 % (50.0-75.0) 03/04/18 13:57 Lymph % (Auto) 19.3 % (20.0-40.0) L 03/04/18 13:57 [place] % (Auto) 4.8 % (0.0-10.0) 03/04/18 13:57 Eos % (Auto) 0.8 % (0.0-4.0) 03/04/18 13:57 Baso % (Auto) 0.3 % (0.0-2.0) 03/04/18 13:57 Neut # (Auto) 6.7 K/uL (1.8-7.0) 03/04/18 13:57 Lymph # (Auto) 1.7 K/uL (1.0-4.3) 03/04/18 13:57 [place] # (Auto) 0.4 K/uL (0.0-0.8) 03/04/18 13:57 Eos # (Auto) 0.1 K/uL (0.0-0.7) 03/04/18 13:57 Baso # (Auto) 0.0 K/uL (0.0-0.2) 03/04/18 13:57 PT 13.3 Seconds (9.8-13.1) H 03/05/18 05:45 INR 1.2 03/05/18 05:45 APTT 38.2 Seconds (25.6-37.1) H 03/05/18 05:45 Sodium 138 mmol/l (132-148) 03/08/18 05:00 Potassium 4.0 MMOL/L (3.6-5.0) 03/08/18 05:00 Chloride 104 mmol/L (98-107) 03/08/18 05:00 Carbon Dioxide 26 mmol/L (22-30) 03/08/18 05:00 Anion Gap 12 (10-20) 03/08/18 05:00 BUN 13 mg/dl (9-20) 03/08/18 05:00 Creatinine 0.8 mg/dl (0.8-1.5) 03/08/18 05:00 Est GFR ( Amer) > 60 03/08/18 05:00 Est GFR (Non-Af Amer) > 60 03/08/18 05:00 Random Glucose 101 mg/dL (75-110) 03/08/18 05:00 Calcium 8.7 mg/dL (8.4-10.2) 03/08/18 05:00 Total Bilirubin 1.6 mg/dl (0.2-1.3) H 03/08/18 05:00 AST 88 U/L (17-59) H 03/08/18 05:00 ALT 215 U/L (21-72) H 03/08/18 05:00 Alkaline Phosphatase 69 U/L (38-126) 03/08/18 05:00 Total Protein 6.2 G/DL (6.3-8.2) L 03/08/18 05:00 Albumin 3.4 g/dL (3.5-5.0) L 03/08/18 05:00 Globulin 2.7 gm/dL (2.2-3.9) 03/08/18 05:00 Albumin/Globulin Ratio 1.2 (1.0-2.1) 03/08/18 05:00 Lipase 27 U/L (23-300) 03/05/18 07:54 Urine Color Yellow (YELLOW) 03/04/18 17:33 Urine Clarity Slighty-cloudy (Clear) 03/04/18 17:33 Urine pH 6.0 (5.0-8.0) 03/04/18 17:33 Ur Specific Interior 1.021 (1.003-1.030) 03/04/18 17:33 Urine Protein Negative mg/dL (NEGATIVE) 03/04/18 17:33 Urine Glucose (UA) Neg mg/dL (Normal) 03/04/18 17:33 Urine Ketones Negative mg/dL (NEGATIVE) 03/04/18 17:33 Urine Blood Negative (NEGATIVE) 03/04/18 17:33 Urine Nitrate Negative (NEGATIVE) 03/04/18 17:33 Urine Bilirubin Negative (NEGATIVE) 03/04/18 17:33 Urine Urobilinogen 2.0 mg/dL (0.2-1.0) 03/04/18 17:33 Ur Leukocyte Esterase Neg Navya/uL (Negative) 03/04/18 17:33 Urine RBC (Auto) 1 /hpf (0-3) 03/04/18 17:33 Urine Microscopic WBC 2 /hpf (0-5) 03/04/18 17:33 Ur Squamous Epith Cells < 1 /hpf (0-5) 03/04/18 17:33 - Hospital Course Hospital Course: 32M presented w. cholecystitis, underwent lap renetta. Post-op course was uncomplicated. Pt tolerated diet. No N/V. Pain controlled. Clear for D/C from surgical standpoint. Discharge Exam - Head Exam Head Exam: ATRAUMATIC, NORMOCEPHALIC - Eye Exam Eye Exam: EOMI Pupil Exam: NORMAL ACCOMODATION - ENT Exam ENT Exam: Mucous Membranes Dry - Neck Exam Neck exam: Full Rom - Respiratory Exam Respiratory Exam: NORMAL BREATHING PATTERN. absent: Accessory Muscle Use, Respiratory Distress - GI/Abdominal Exam GI & Abdominal Exam: Soft, Tenderness (per-incisional ). absent: Distended, Firm, Guarding, Rebound, Rigid - Neurological Exam Neurological exam: Alert, Oriented x3 Discharge Plan - Discharge Medications Prescriptions: Docusate Sodium [Colace] 50 mg PO DAILY #30 capsule Ibuprofen [Motrin Tab] 600 mg PO Q6H #12 tab oxyCODONE/Acetaminophen [Percocet 5/325 mg Tab] 1 ea PO Q4H PRN #28 tab PRN Reason: Pain, Moderate (4-7) - Follow Up Plan Condition: FAIR Disposition: HOME/ ROUTINE Patient education suggested?: Yes Instructions: Cholecystitis (DC), Cholecystitis (GEN) Additional Instructions: follow up with primary md, Senior [employer] Programmer 1 week Referrals: [facility] [Outside] Delmar Schmidt MD [Staff Provider] - Kurt Rubin MD [Staff Provider] - <Delmar Schmidt - Last Filed: 03/08/18 11:11> Provider - Provider Date of Admission: 03/04/18 15:30 Attending physician: Delmar Schmidt MD Time Spent in preparation of Discharge (in minutes): 30 (Patient seen and examined independent of resident staff. Agree with above. Adv diet. Home today. f/u 2-4 weeks. Patient to call office to schedule appointment. ) Hospital Course - Lab Results Lab Results: Micro Results 03/04/18 15:02 Blood Blood Culture - Preliminary NO GROWTH AFTER 3 DAYS 03/04/18 15:02 Blood Blood Culture - Preliminary NO GROWTH AFTER 3 DAYS Most Recent Lab Values WBC 10.3 K/uL (4.8-10.8) 03/08/18 05:00 RBC 4.25 Mil/uL (4.40-5.90) L 03/08/18 05:00 Hgb 13.5 g/dL (12.0-18.0) 03/08/18 05:00 Hct 39.3 % (35.0-51.0) 03/08/18 05:00 MCV 92.5 fl (80.0-94.0) 03/08/18 05:00 MCH 31.8 pg (27.0-31.0) H 03/08/18 05:00 MCHC 34.3 g/dL (33.0-37.0) 03/08/18 05:00 RDW 13.5 % (11.5-14.5) 03/08/18 05:00 Plt Count 271 K/uL (130-400) 03/08/18 05:00 MPV 7.5 fl (7.2-11.7) 03/04/18 13:57 Neut % (Auto) 74.8 % (50.0-75.0) 03/04/18 13:57 Lymph % (Auto) 19.3 % (20.0-40.0) L 03/04/18 13:57 [place] % (Auto) 4.8 % (0.0-10.0) 03/04/18 13:57 Eos % (Auto) 0.8 % (0.0-4.0) 03/04/18 13:57 Baso % (Auto) 0.3 % (0.0-2.0) 03/04/18 13:57 Neut # (Auto) 6.7 K/uL (1.8-7.0) 03/04/18 13:57 Lymph # (Auto) 1.7 K/uL (1.0-4.3) 03/04/18 13:57 [place] # (Auto) 0.4 K/uL (0.0-0.8) 03/04/18 13:57 Eos # (Auto) 0.1 K/uL (0.0-0.7) 03/04/18 13:57 Baso # (Auto) 0.0 K/uL (0.0-0.2) 03/04/18 13:57 PT 13.3 Seconds (9.8-13.1) H 03/05/18 05:45 INR 1.2 03/05/18 05:45 APTT 38.2 Seconds (25.6-37.1) H 03/05/18 05:45 Sodium 138 mmol/l (132-148) 03/08/18 05:00 Potassium 4.0 MMOL/L (3.6-5.0) 03/08/18 05:00 Chloride 104 mmol/L (98-107) 03/08/18 05:00 Carbon Dioxide 26 mmol/L (22-30) 03/08/18 05:00 Anion Gap 12 (10-20) 03/08/18 05:00 BUN 13 mg/dl (9-20) 03/08/18 05:00 Creatinine 0.8 mg/dl (0.8-1.5) 03/08/18 05:00 Est GFR ( Amer) > 60 03/08/18 05:00 Est GFR (Non-Af Amer) > 60 03/08/18 05:00 Random Glucose 101 mg/dL (75-110) 03/08/18 05:00 Calcium 8.7 mg/dL (8.4-10.2) 03/08/18 05:00 Total Bilirubin 1.6 mg/dl (0.2-1.3) H 03/08/18 05:00 AST 88 U/L (17-59) H 03/08/18 05:00 ALT 215 U/L (21-72) H 03/08/18 05:00 Alkaline Phosphatase 69 U/L (38-126) 03/08/18 05:00 Total Protein 6.2 G/DL (6.3-8.2) L 03/08/18 05:00 Albumin 3.4 g/dL (3.5-5.0) L 03/08/18 05:00 Globulin 2.7 gm/dL (2.2-3.9) 03/08/18 05:00 Albumin/Globulin Ratio 1.2 (1.0-2.1) 03/08/18 05:00 Lipase 27 U/L (23-300) 03/05/18 07:54 Urine Color Yellow (YELLOW) 03/04/18 17:33 Urine Clarity Slighty-cloudy (Clear) 03/04/18 17:33 Urine pH 6.0 (5.0-8.0) 03/04/18 17:33 Ur Specific Interior 1.021 (1.003-1.030) 03/04/18 17:33 Urine Protein Negative mg/dL (NEGATIVE) 03/04/18 17:33 Urine Glucose (UA) Neg mg/dL (Normal) 03/04/18 17:33 Urine Ketones Negative mg/dL (NEGATIVE) 03/04/18 17:33 Urine Blood Negative (NEGATIVE) 03/04/18 17:33 Urine Nitrate Negative (NEGATIVE) 03/04/18 17:33 Urine Bilirubin Negative (NEGATIVE) 03/04/18 17:33 Urine Urobilinogen 2.0 mg/dL (0.2-1.0) 03/04/18 17:33 Ur Leukocyte Esterase Neg Navya/uL (Negative) 03/04/18 17:33 Urine RBC (Auto) 1 /hpf (0-3) 03/04/18 17:33 Urine Microscopic WBC 2 /hpf (0-5) 03/04/18 17:33 Ur Squamous Epith Cells < 1 /hpf (0-5) 03/04/18 17:33
--- NOTE | 2018-03-11 17:08 | PCM.OP ---
Operative Report - Operative Report Date of Surgery/Procedure: 03/07/18 Time of Surgery/Procedure: 13:00 Surgeon: Delmar Schmidt MD Bowling Ball Patcher: Ciera Castellanos DO; Cesario Renae DO - resident staff Anesthesia/Sedation: General endotracheal; 1% lidocaine + 0.25% Marcaine mix local anesthesia Pre-Operative Diagnosis: Acute calculus cholecystitis. Choledocholithiasis s/p ERCP with sphincterotomy and stone extraction. Overweight. BMI 28 Post-Operative Diagnosis: Acute calculus cholecystitis. Choledocholithiasis s/ p ERCP with sphincterotomy and stone extraction. Overweight. BMI 28 Indication for Surgery: 32 year old male admitted through ED with acute cholecystitis confirmed on abdominal US. Elevated liver enzymes and bilirubin the following morning, MRCP showing biliary obstruction from choledocholithiasis. Underwent ERCP with sphincterotomy and stone extraction with GI. Details of HPI in clinical chart. Taken to the operating room for laparoscopic cholecystectomy. Patient understands the risks and benefits of the procedure as documented in the clinic chart but specifically risk of cystic duct leak and common bile duct injury, need for open surgery and has consented to the procedure. Operative Findings: Inflamed fluid filled, contracted, intra-hepatic gallbladder. Dilated cystic duct. Clips in place on cystic duct (and endoloop suture) and cystic artery at end of case without evidence of bleeding or bile leak. Procedure/Operation Description: PROCEDURES PERFORMED: 1) Laparoscopic Cholecystectomy. . DESCRIPTION OF PROCEDURE: The patient was given a preoperative dose of Ancef 20 minutes before the incision. SCD boots were placed for DVT prophylaxis. The patient had an orogastric tube placed in order to empty the stomach after the induction of general anesthesia. Upper and lower body warmer placed to maintain normothermia. Small caliber cardona cather inserted. Secure straps placed above and bleow the knees and footboard placed. Arms placed on arm boards out at 80 degress. All bony prominences were padded. A timeout was performed prior to incision. The abdomen was prepped and draped in sterile fashion. All skin incisions were made using an 11 blade scalpel after being pre-anesthetized with local anesthesia. In the umbilical midline, a circumlinear incision was made and the umbilical raphe was identified and the fascia was divided between clamps at its base entering the abdomen in an open fashion. A 11-mm trocar was inserted in the abdomen and the abdomen was insufflated to 15 mmHg pressure with CO2. A 30-degree viewing scope was then inserted and the abdomen was generally inspected and there was not found to be any additional signs of pathology. In the right upper quadrant, two 5-mm ports were placed after the under direct vision and in the subxiphoid midline, an 11- mm radially dilating port was placed in the similar fashion. . There was significant inflammation in the right upper abdomen and a large dilated gallbladder fundus was identified beneath the liver edge. A laparoscopic aspiration needle was inserted into the fundus and used to aspirate 20cc of bilious fluid for decompression and allow grasping and retraction. The fundus of the gallbladder was then retracted to the right upper quadrant and the neck of the gallbladder was visualized. There were omental adhesions to the gallbladder that were taken down with a cominbation of sharp dissection and hook cautery. The peritoneal attachments from the lateral portion of the gallbladder/cystic duct junction were gently dissected and divided to open up the [place]. The [place] was then dissected up onto the liver bed posterior to the gallbladder in order to ensure that this was the cystic duct and not tenting of the common bile duct. The peritoneal attachments on the medial portion of the gallbladder going up to the side of the liver were taken and distal third of galbbladder dissected off the cystic plate. The critical view was obtained. The cystic artery and duct were sequentially then doubly clipped and ligated and the clips were inspected. The clips on the cystic duct did not completely traverse the cystic duct stump and so the proximal clip was removed and an 0-vicryl endoloop x2 was used to ligate the cystic duct proximal to the distal clip. Care was taken not to impinge up the CD junction with CBD. . Once this was completed, the gallbladder was dissected free from the liver bed using electrocautery and placed this in an endo catch bag. This was withdrawn through the umbilical port. The abdomen was reinspected. The clips were in good position on the cystic artery and duct stumps and the abdomen was generally irrigated and drained. The ports were then removed from the abdomen and the abdomen was desufflated with air. The umbilical port was closed with interrupted 0- Vicryl suture x3, skin incisions closed with 4-0 Vicryl sutures, and finally dermabond applied to skin. The patient tolerated the procedure well and was extubated and stable in recovery after the procedure. . I was present throughout the entirety of the procedure. Sponge, needle and instrument counts were correct. Estimated Blood Loss: 50mL Drains: none Complications: none Specimen: gallbladder Discharge & Condition: above
--- NOTE | 2018-03-12 13:35 | RAD ---
Date of service: 03/07/2018 PROCEDURE: Intraoperative Fluoroscopy. HISTORY: ERCP FINDINGS: Fluoroscopic assistance was provided for ERCP. Please refer to the operative report from MONISHA Grier. Total fluoroscopic time (continuous mode) utilized during the procedure 19.2 (seconds). Total exam DLP: 7.43 (mGy).
== END 2018-03-08 13:23 | disposition home or self-care (01) | DRG 419 ==
LOC: H.ER 12:46 → H.ERHOLD 15:30 → H.MEDSURG1 03-05 13:47
PROVIDERS: ADMIT Surgery; ATTEND Surgery
PROC: 0FJB8ZZ Inspection of Hepatobiliary Duct, Via Natural or Artificial Opening Endoscopic (ICD-10-PCS; 2018-03-06)
PROC: 0FC98ZZ Extirpation of Matter from Common Bile Duct, Via Natural or Artificial Opening Endoscopic (ICD-10-PCS; 2018-03-07)
PROC: 0FT44ZZ Resection of Gallbladder, Percutaneous Endoscopic Approach (ICD-10-PCS; principal; 2018-03-07 08:00)
DX: K80.62 Calculus of gallbladder and bile duct with acute cholecystitis without obstruction (principal); J45.909 Unspecified asthma, uncomplicated; F12.90 Cannabis use, unspecified, uncomplicated; F17.210 Nicotine dependence, cigarettes, uncomplicated; Z87.442 Personal history of urinary calculi; Z59.0 Homelessness

== ENCOUNTER 2018-03-10 02:16 | Emergency (ER) | payer SELFPAY ==
[2018-03-10 02:16] VITALS: BMI 28.7
[2018-03-10 02:37] VITALS: BP 131/76; PULSE 100; RESP 17; TEMP 98.6; O2SAT 100
--- NOTE | 2018-03-10 02:54 | ED PDOC ---
HPI: Abdomen Time Seen by Provider: 03/10/18 02:18 Chief Complaint (Nursing): Abdominal Pain Chief Complaint (Provider): abdominal pain History Per: Patient History/Exam Limitations: no limitations Onset/Duration Of Symptoms: Days Current Symptoms Are (Timing): Still Present Location Of Pain/Discomfort: Periumbilical Additional Complaint(s): 32 y/o male brought in by EMS for evaluation of abdominal pain x 2 days. Patient states he was discharged from hospital 03/08 after having cholecystectomy and ERCP 03/07; states he was given Perocet prescription but has been unable to fill it because they cannot "find him in the system". Patient reports pain to periumbilical area, unrelieved with Tylenol. Denies fever, nausea/vomiting, chest pain, shortness of breath, palpitations, changes in bowel movements, urinary symptoms. Past Medical History Reviewed: Historical Data, Nursing Documentation, Vital Signs Vital Signs: Last Vital Signs Temp 98.6 F 03/10/18 02:32 Pulse 100 H 03/10/18 02:32 Resp 17 03/10/18 02:32 BP 131/76 03/10/18 02:32 Pulse Ox 100 03/10/18 05:15 - Medical History PMH: Gall Bladder Disease - Surgical History Surgical History: Cholecystectomy - Family History Family History: States: Unknown Family Hx - Home Medications Home Medications: Ambulatory Orders Medication Instructions Recorded Docusate Sodium [Colace] 50 mg PO DAILY #30 capsule 03/08/18 Ibuprofen [Motrin Tab] 600 mg PO Q6H #12 tab 03/08/18 oxyCODONE/Acetaminophen [Percocet 1 ea PO Q4H PRN #28 tab 03/08/18 5/325 mg Tab] - Allergies Allergies/Adverse Reactions: Allergies Allergy/AdvReac Type Severity Reaction Status Date / Time No Known Allergies Allergy Verified 03/10/18 02:37 Review of Systems ROS Statement: Except As Marked, All Systems Reviewed And Found Negative Gastrointestinal: Positive for: Abdominal Pain Physical Exam - Reviewed Nursing Documentation Reviewed: Yes Vital Signs Reviewed: Yes - Physical Exam Appears: Positive for: Well, Non-toxic, No Acute Distress Head Exam: Positive for: ATRAUMATIC, NORMAL INSPECTION, NORMOCEPHALIC Skin: Positive for: Normal Color Eye Exam: Positive for: Normal appearance Cardiovascular/Chest: Positive for: Regular Rate, Rhythm Respiratory: Positive for: Normal Breath Sounds Gastrointestinal/Abdominal: Positive for: Bowel Sounds, Soft, Tenderness ( periumbilical; no fluctuance, erythema noted. Abdominal incision sites dry; no drainage, tenderness, erythema noted) Back: Positive for: Normal Inspection Extremity: Positive for: Normal ROM Neurologic/Psych: Positive for: Alert, Oriented (x3) - Laboratory Results Result Diagrams: 03/10/18 03:46 03/10/18 03:46 - ECG O2 Sat by Pulse Oximetry: 100 - Progress ED Course And Treament: labs, percocet PO Slight elevation in WBC; will order CT abd/pelvis for further eval EXAM: CT Abdomen and Pelvis With Intravenous Contrast EXAM DATE/TIME: Exam ordered 03/10/2018 4:12 AM CLINICAL HISTORY: 32 years old, male; Pain; Abdominal pain; Additional info: Periumbilcal pain, S/ P cholecystectomy TECHNIQUE: Axial computed tomography images of the abdomen and pelvis with intravenous contrast. All CT scans at this facility use at least one of these dose optimization techniques: automated exposure control; mA and/or kV adjustment per patient size (includes targeted exams where dose is matched to clinical indication); or iterative reconstruction. CONTRAST: 96 mL of omnipaque administered intravenously. COMPARISON: No relevant prior studies available. FINDINGS: Lung bases: There is subpleural atelectasis of the dependent portions of the lungs. There is a pulmonary parenchymal calcification consistent with remote granulomatous organism exposure. ABDOMEN: Liver: There are no focal liver lesions identified. Gallbladder and bile ducts: There has been a cholecystectomy. No ductal dilation. Pancreas: The pancreas appears normal. No ductal dilation. Spleen: The spleen is normal. Adrenals: Normal. No mass. Kidneys and ureters: The kidneys appear normal. No hydronephrosis. Stomach and bowel: The stomach is normal. The duodenum is unremarkable. The stomach is normal. The colon is normal. No obstruction. No mucosal thickening. PELVIS: Appendix: A normal appendix is identified. Bladder: Normal. No mass. Reproductive: The prostate gland demonstrates nonspecific parenchymal calcifications ABDOMEN and PELVIS: Intraperitoneal space: Normal. No free air. No significant fluid collection. Bones/joints: No acute fracture. No dislocation. Soft tissues: There is periumbilical soft tissue stranding/thickening measuring 14 mm in diameter probably representing edema from recent laparoscopic surgery although small hematoma is possible. There are small foci of air within the abdomen and subcutaneous tissues probably from recent surgery. Vasculature: The vasculature is normal. No abdominal aortic aneurysm. Lymph nodes: Normal. No enlarged lymph nodes. IMPRESSION: There is periumbilical soft tissue stranding/thickening measuring 14 mm in diameter probably representing edema from recent laparoscopic surgery although small hematoma is possible. Patient sleeping on re-eval; states he is feeling better upon awakening Case discussed with ED attending Dr. Mcdonough, agrees with plan to d/c and outpatient follow up. Patient educated on findings, discharged with instructions to follow up Dr. Schmidt as previously instructed Advised to fill percocet as previously prescribed Return precautions given Patient demonstrates full understanding of discharge instructions Patient requires no further intervention in the ED and is stable for discharge at this time Disposition - Clinical Impression Clinical Impression: Abdominal pain - Patient ED Disposition Is Patient to be Admitted: No Counseled Patient/Family Regarding: Studies Performed, Diagnosis, Need For Followup - Disposition Disposition: Routine/Home Disposition Time: 05:14 Condition: IMPROVED Additional Instructions: Fill your pain prescription. Follow up with Dr. Schmidt as scheduled Instructions: Cholecystectomy, Laparoscopic Surgery
[2018-03-10] MEDS ORDERED: Oxycodone/Acetaminophen 5/325 mg Tab PO ONE (02:58)
[2018-03-10 03:54] LABS: BASO # 0.1 K/uL (0.0-0.2); BASO % 0.7 % (0.0-2.0); EOS # 0.2 K/uL (0.0-0.7); EOS % 1.6 % (0.0-4.0); HEMOGLOBIN 14.8 g/dL (12.0-18.0); LYMPH # 3.8 K/uL (1.0-4.3); LYMPH % 32.4 % (20.0-40.0); MEAN CORPUSCULAR HEMOGLOBIN 31.7 pg (27.0-31.0); MEAN CORPUSCULAR HGB CONC 34.8 g/dL (33.0-37.0); MEAN PLATELET VOLUME 7.1 fl (7.2-11.7); MONO % 8.4 % (0.0-10.0); NEUT # 6.7 K/uL (1.8-7.0); NEUT % 56.9 % (50.0-75.0); NRBC % 0.1 % (0.0-0.0); RBC 4.67 Mil/uL (4.40-5.90); RED CELL DISTRIBUTION WIDTH 13.9 % (11.5-14.5); WHITE BLOOD COUNT 11.9 K/uL (4.8-10.8)
[2018-03-10 04:10] LABS: ALB/GLOB RATIO 1.3 (1.0-2.1); ALBUMIN 4.4 g/dL (3.5-5.0); ALT/SGPT 143 U/L (21-72); AST/SGOT 63 U/L (17-59); BLOOD UREA NITROGEN 17 mg/dl (9-20); CALCIUM 9.4 mg/dL (8.4-10.2); GFR NON-AFRICAN AMERICAN > 60; LIPASE 102 U/L (23-300)
[2018-03-10] MEDS ORDERED: Iohexol 300 100 ML IJ ONE (04:30)
[2018-03-10] MEDS ORDERED: Sodium Chloride 0.9% 50 ML IV ONE (04:30)
--- NOTE | 2018-03-10 11:16 | CT ---
Date of service: 03/10/2018 PROCEDURE: CT Abdomen and Pelvis with contrast HISTORY: periumbilcal pain, s/p cholecystectomy COMPARISON: None. TECHNIQUE: Contrast dose: Spleen Radiation dose: Total exam DLP = 789 mGy-cm. This CT exam was performed using one or more of the following dose reduction techniques: Automated exposure control, adjustment of the mA and/or kV according to patient size, and/or use of iterative reconstruction technique. FINDINGS: LOWER THORAX: Mild subsegmental atelectasis is seen bilaterally at the lung bases. No pneumothorax or pleural effusion is seen. No pericardial effusion is seen. Visualized distal esophagus is unremarkable. LIVER: Liver is fatty infiltrated without evidence of focal mass. There is a small amount of air seen overlying the right lobe of the liver. Small amount of biliary air is also seen in the left lobe of the liver. No intrahepatic ductal dilatation is seen. . GALLBLADDER AND BILE DUCTS: Gallbladder is been previously removed. Mild postsurgical changes are seen in the gallbladder fossa region without focal fluid to suggest biloma or abscess. A mild amount of inflammatory changes are also seen extending from the gallbladder fossa adjacent to the duodenum. Duodenum shows no evidence of wall thickening. Common bile duct is mildly dilated distally measuring 9-10 millimeters. No appreciable common bile duct calculus is noted. Common bile duct appears to taper distally. PANCREAS: Pancreas is normal in outline and echogenicity. No peripancreatic inflammatory changes are seen. No pancreatic ductal dilatation is noted SPLEEN: Spleen is unremarkable. ADRENALS: Unremarkable. No mass. KIDNEYS AND URETERS: Unremarkable. No hydronephrosis. No solid mass. VASCULATURE: Unremarkable. No aortic aneurysm. BOWEL: Visualized stomach is noted to have moderate debris and is mildly distended but without wall thickening. No small bowel dilatation or small bowel obstruction is noted. No colonic wall thickening or pericolonic inflammatory changes are seen. APPENDIX: Normal appendix. PERITONEUM: Small amount of free intraperitoneal air is noted overlying the liver probably related to the recent surgery. No ascites is seen. LYMPH NODES: Unremarkable. No enlarged lymph nodes. BLADDER: Unremarkable. REPRODUCTIVE: Unremarkable. BONES: Mild degenerative disc disease is seen in the lower lumbar spine with mild disc bulging. Bony structures are intact. OTHER FINDINGS: There is evidence of mild periumbilical soft tissue thickening with a small amount of subcutaneous air noted in the superior subcutaneous abdominal region on axial images 41 through 46. Findings are more than likely related to the recent surgery. There is additionally some minimal induration noted just beneath the umbilicus within the anterior abdomen probably also related to mild postsurgical change although minimal amount of subtle omental infarction is not excluded. IMPRESSION: Status post cholecystectomy. Mild postsurgical changes in the anterior abdominal subcutaneous soft tissues and periumbilical region. Minor amount of residual intra abdominal air. There is also mild postsurgical changes seen in the gallbladder fossa and adjacent to the duodenum without focal abscess. Common bile duct is mildly enlarged measuring 10 millimeters, without common bile duct calculus clearly seen. If there is strong clinical concern MRCP could be obtained. No evidence of bowel obstruction. Distended stomach with debris.
== END 2018-03-10 06:01 | disposition home or self-care (01) ==
LOC: H.ER 02:16
DX: R10.9 Unspecified abdominal pain (principal)
CPT/HCPCS: 74177; 80053; 83690; 85025; 99283; Q9967

== ENCOUNTER 2018-03-10 23:04 | Emergency (ER) | payer SELFPAY ==
[2018-03-10 23:04] VITALS: BMI 28.7
[2018-03-10] MEDS ORDERED: Oxycodone/Acetaminophen 5/325 mg Tab PO ONE (23:55)
--- NOTE | 2018-03-10 23:58 | ED PDOC ---
HPI: Abdomen Time Seen by Provider: 03/10/18 23:47 Chief Complaint (Nursing): Wound Check Chief Complaint (Provider): abdominal pain History Per: Patient History/Exam Limitations: no limitations Additional Complaint(s): 32 y/o male ambulates to ED for ongoing abdominal pain. Patient seen in ED yesterday for same; states pharmacies were closed today so he still was not able to fill his pain prescriptions. Denies fever, nausea/vomiting, changes in bowel movements, drainage from incision sites. Past Medical History Reviewed: Historical Data, Nursing Documentation, Vital Signs Vital Signs: Last Vital Signs Temp 98 F 03/10/18 23:26 Pulse 70 03/10/18 23:26 Resp 16 03/10/18 23:26 BP 137/85 03/10/18 23:26 Pulse Ox 98 03/10/18 23:58 - Medical History PMH: Gall Bladder Disease, Kidney Stones - Surgical History Surgical History: Cholecystectomy - Family History Family History: States: Unknown Family Hx - Home Medications Home Medications: Ambulatory Orders Medication Instructions Recorded Docusate Sodium [Colace] 50 mg PO DAILY #30 capsule 03/08/18 Ibuprofen [Motrin Tab] 600 mg PO Q6H #12 tab 03/08/18 oxyCODONE/Acetaminophen [Percocet 1 ea PO Q4H PRN #28 tab 03/08/18 5/325 mg Tab] - Allergies Allergies/Adverse Reactions: Allergies Allergy/AdvReac Type Severity Reaction Status Date / Time No Known Allergies Allergy Verified 03/10/18 02:37 Review of Systems ROS Statement: Except As Marked, All Systems Reviewed And Found Negative Gastrointestinal: Positive for: Abdominal Pain Physical Exam - Reviewed Nursing Documentation Reviewed: Yes Vital Signs Reviewed: Yes - Physical Exam Appears: Positive for: Well, Non-toxic, No Acute Distress Head Exam: Positive for: ATRAUMATIC, NORMAL INSPECTION, NORMOCEPHALIC Skin: Positive for: Normal Color Eye Exam: Positive for: Normal appearance ENT: Positive for: Normal ENT Inspection Cardiovascular/Chest: Positive for: Regular Rate, Rhythm Respiratory: Positive for: Normal Breath Sounds Gastrointestinal/Abdominal: Positive for: Bowel Sounds, Soft. Negative for: Tenderness (abdominal incision sites dry; no surrounding erythema, drainage noted. Mild periumbilical ecchymosis; no fluctuance) Back: Positive for: Normal Inspection Extremity: Positive for: Normal ROM Neurologic/Psych: Positive for: Alert, Oriented (x3) - ECG O2 Sat by Pulse Oximetry: 98 - Progress ED Course And Treament: Vitals stable Case discussed with Dr. Portillo, surgical training specialist on-call; who feels findings all seem post-surgical related Percocet PO given to patient Patient was again instructed to fill prescriptions in am when pharmacy opens and call Dr. Schmidt's office to schedule follow up appointment Patient requires no further intervention in ED and is stable for discharge at this time. Return precautions given Disposition - Clinical Impression Clinical Impression: Abdominal pain - Patient ED Disposition Is Patient to be Admitted: No Counseled Patient/Family Regarding: Diagnosis, Need For Followup - Disposition Disposition: Routine/Home Disposition Time: 00:12 Condition: IMPROVED Instructions: Cholecystectomy, Laparoscopic Surgery
[2018-03-11 00:33] VITALS: BP 128/82; PULSE 74; RESP 18; TEMP 98.2; O2SAT 99
== END 2018-03-11 00:33 | disposition home or self-care (01) ==
LOC: H.ER 23:04
DX: R10.9 Unspecified abdominal pain (principal)

== ENCOUNTER 2018-03-11 02:39 | Emergency (ER) | payer SELFPAY ==
[2018-03-11 02:39] VITALS: BMI 28.7
--- NOTE | 2018-03-11 03:04 | ED PDOC ---
HPI: Abdomen Time Seen by Provider: 03/11/18 02:57 Chief Complaint (Nursing): Abdominal Pain Chief Complaint (Provider): Abdominal Pain History Per: Patient History/Exam Limitations: no limitations Onset/Duration Of Symptoms: Days (x 3) Current Symptoms Are (Timing): Still Present Location Of Pain/Discomfort: Periumbilical Quality Of Discomfort: "Pain" Additional Complaint(s): 32 year old male with a history of cholecystitis presents to the ED with abdominal pain s/p laproscopic cholecystectomy on 03/07/2018. This is the 3rd time the patient was seen here in the last 2 days for the same symptoms. He had a full work up done [address] revealed post operative hematoma. Patient returned, was discharged from this facility 30 minutes ago and then called an ambulance to return. Offers no other medical complaints. PMD: none provided Past Medical History Reviewed: Historical Data, Nursing Documentation, Vital Signs Vital Signs: Last Vital Signs Temp 98.2 F 03/11/18 02:45 Pulse 86 03/11/18 02:45 Resp 16 03/11/18 02:45 BP 130/86 03/11/18 02:45 Pulse Ox 98 03/11/18 03:36 - Medical History PMH: Gall Bladder Disease, Kidney Stones - Surgical History Surgical History: Cholecystectomy - Family History Family History: States: Unknown Family Hx - Living Arrangements Living Arrangements: Other (homeless) - Home Medications Home Medications: Ambulatory Orders Medication Instructions Recorded Docusate Sodium [Colace] 50 mg PO DAILY #30 capsule 03/08/18 Ibuprofen [Motrin Tab] 600 mg PO Q6H #12 tab 03/08/18 oxyCODONE/Acetaminophen [Percocet 1 ea PO Q4H PRN #28 tab 03/08/18 5/325 mg Tab] - Allergies Allergies/Adverse Reactions: Allergies Allergy/AdvReac Type Severity Reaction Status Date / Time No Known Allergies Allergy Verified 03/10/18 02:37 Review of Systems ROS Statement: Except As Marked, All Systems Reviewed And Found Negative Gastrointestinal: Positive for: Abdominal Pain Physical Exam - Reviewed Nursing Documentation Reviewed: Yes Vital Signs Reviewed: Yes - Physical Exam Appears: Positive for: Non-toxic, No Acute Distress Head Exam: Positive for: ATRAUMATIC, NORMAL INSPECTION, NORMOCEPHALIC Skin: Positive for: Normal Color, Warm, Dry Eye Exam: Positive for: EOMI, Normal appearance, PERRL Neck: Positive for: Normal, Painless ROM, Supple Cardiovascular/Chest: Positive for: Regular Rate, Rhythm. Negative for: Murmur Respiratory: Positive for: Normal Breath Sounds. Negative for: Wheezing, Respiratory Distress Gastrointestinal/Abdominal: Positive for: Normal Exam, Other (ecchymosis to periumbilical region; incisions to periumbilicus are clean and dry with no drainage) Back: Positive for: Normal Inspection. Negative for: L CVA Tenderness, R CVA Tenderness Extremity: Positive for: Normal ROM. Negative for: Deformity Neurologic/Psych: Positive for: Alert, Oriented (x 3). Negative for: Motor/ Sensory Deficits - ECG O2 Sat by Pulse Oximetry: 98 (RA) Pulse Ox Interpretation: Normal Medical Decision Making Medical Decision Makin:59 Impression: 32 y/o male with abdominal pain in setting of recent surgery Initial Plan: --general surgery consult Patient had been given a prescription for Percocet which he has not filled. Was given a single dose of percocet prior to discharge at his last visit. 03:33 --Patient was evaluated by surgical service, Dr. Portillo. Patient is cleared surgically for discharge. Diagnosis is post-operative pain. 04:02 --Patient became extremely verbally abusive towards nursing staff. He refused to be discharged and instead demanded pain killers. Security staff asked [employer] for assistance and he was removed from premises by police. Scribe Attestation: Documented by Kusum Schneider, acting as a scribe for Dany Mcdonough MD Provider Scribe Attestation: All medical record entries made by the Scribe were at my direction and personally dictated by me. I have reviewed the chart and agree that the record accurately reflects my personal performance of the history, physical exam, medical decision making, and the department course for this patient. I have also personally directed, reviewed, and agree with the discharge instructions and disposition. Disposition - Clinical Impression Clinical Impression: Post-operative pain - Patient ED Disposition Is Patient to be Admitted: No - Disposition Disposition: Routine/Home Disposition Time: 03:35 Condition: STABLE Instructions: Managing Pain After Surgery Forms: [employer] ([place])
--- NOTE | 2018-03-11 03:19 | CP.PCM.CON ---
History of Present Illness - History of Present Illness History of Present Illness: Surgery Consult: Dr. Schmidt Pt is a 32M with recent lap cholecystectomy on 03/06 who presents to [facility] with complaints of post-op pain. Pt has presented to the ER twice within the last 24hrs for pain around his subcostal incision. Pt states he was sent home on saturday but started having pain on saturday and did not have his script for percocet filled. He came to the ER and his vitals and labs were not significant so he was discharged with instructions to fill his script and follow up in the surgery clinic for his post-op visit. Pt returned a few hours later with the same complaint that his pain was not improving. A CT abdomen/pelvis was done and shows post-op changes with some fluid and air in the gallbladder fossa as expected. Some inflammatory changes seen around the umbilical incision also consistent with recent surgery. Surgery called to evaluate the pt. Currently, pt is resting comfortably in bed. States his pain is the same as prior to surgery. He also complains of sweats & diarrhea. Denies fevers, nausea/vomiting, chest pain or SOB. PMHx: nephrolithiasis PSHx: lap renetta, ureteral stent SocialHx: current smoker, occasional EtOH/marijuana daily. Pt is currently homeless NKDA Review of Systems - Review of Systems All systems: reviewed and no additional remarkable complaints except (as per HPI ) Past Patient History - Past Medical History & Family History Past Medical History?: Yes - Past Social History Smoking Status: Light Smoker < 10 Cigarettes Daily - RENAL Hx Kidney Stones: Yes - MUSCULOSKELETAL/RHEUMATOLOGICAL Hx Falls: No - GASTROINTESTINAL Hx Gall Bladder Disease: Yes - GENITOURINARY/GYNECOLOGICAL Hx Genitourinary Disorders: Yes - PSYCHIATRIC Hx Substance Use: Yes - SURGICAL HISTORY Hx Cholecystectomy: Yes - ANESTHESIA Hx Anesthesia: Yes Hx Anesthesia Reactions: No Meds Allergies/Adverse Reactions: Allergies Allergy/AdvReac Type Severity Reaction Status Date / Time No Known Allergies Allergy Verified 03/10/18 02:37 Physical Exam - Constitutional Appears: No Acute Distress - Head Exam Head Exam: ATRAUMATIC, NORMOCEPHALIC - ENT Exam ENT Exam: Mucous Membranes Moist - Respiratory Exam Respiratory Exam: NORMAL BREATHING PATTERN - Cardiovascular Exam Cardiovascular Exam: RRR - GI/Abdominal Exam GI & Abdominal Exam: Soft, Tenderness (around subcostal incision). absent: Distended, Guarding, Rebound - Neurological Exam Neurological exam: Alert, Oriented x3 - Skin Skin Exam: Dry, Warm Results - Vital Signs Recent Vital Signs: Last Vital Signs Temp 98.2 F 03/11/18 02:45 Pulse 86 03/11/18 02:45 Resp 16 03/11/18 02:45 BP 130/86 03/11/18 02:45 Pulse Ox 98 03/11/18 03:15 - Imaging and Cardiology CT scan - abdomen Status: Image reviewed by me, Report reviewed by me Assessment & Plan - Assessment and Plan (Free Text) Assessment: 32M with post-op pain s/p flo jackson on 03/06 Plan: - pt instructed to fill script for Percocet for better pain control - instructed to f/u with Dr. Schmidt in clinic for post-op visit - clear for DC from surgical standpoint - will d/w Dr. Brayan Portillo
[2018-03-11 06:34] VITALS: BP 121/79; PULSE 81; RESP 18; TEMP 98; O2SAT 99
== END 2018-03-11 04:10 | disposition home or self-care (01) ==
LOC: H.ER 02:39
DX: R10.9 Unspecified abdominal pain (principal); H95.89 Other postprocedural complications and disorders of the ear and mastoid process, not elsewhere classified; F17.210 Nicotine dependence, cigarettes, uncomplicated; G89.18 Other acute postprocedural pain; Z87.442 Personal history of urinary calculi; Z90.49 Acquired absence of other specified parts of digestive tract